=== PATIENT | male | born 1945 ===

== ENCOUNTER → 2024-08-14 11:31 | Outpatient (REF) | payer MEDICARE, SELFPAY | LOC: HWRCS 11:31 | PROVIDERS: ATTENDING PHYSICIAN Internal Medicine Cardiovascular Disease; FAMILY PHYSICIAN Internal Medicine | DX: I25.10 Atherosclerotic heart disease of native coronary artery without angina pectoris (principal) | CPT/HCPCS: 78452; 93017; A9500; J2785 ==

== ENCOUNTER 2024-10-01 14:39 | Inpatient (IN) | payer MEDICARE, OTHER, SELFPAY ==
[2024-10-01] VITALS (21 sets, daily range): BP systolic 66–125; BP diastolic 55–85; BMI 29.6
--- NOTE | 2024-10-01 11:51 | W.ICD.CONTRA ---
Post ICD/LUMBER BUYER-D
-
History of [place]?: Yes
LV Function
Left ventricular function study result?: Ejection Fraction >/= 40%
ACEI/ARB/ARNI
Patient already on ACEI/ARB/ARNI: Yes
Beta-Nathalie
Patient already on Beta Nathalie: Yes
--- NOTE | 2024-10-01 13:35 | ITS.CL.ICD ---
Disaster Director - ICD
Implantable Cardioverter Defibrillator
Procedure Report:
ICD IMPLANTATION REPORT
Date of Procedure: October 01, 2024
Primary Care Provider: Dr Gary Brown
Primary technical communication teacher: Dr Jose Luis Argueta
draw operator: Arsen Cueto M.D.
PROCEDURES:
1. Right Heart Cath, 2. BiV ICD Implant
HISTORY:
History notable for recent ST elevation ND, EF 40-45% on initial evaluation 05/2024 in [place], with complete heart block s/p placement of dual-chamber pacemaker. Also found to have new diagnosis of atrial fibrillation 05/2024,s/p ANA/CV and started on
Eliquis and Amiodarone. Subsequent admission to [facility] 07/2024 for acute on chronic HFrEF, echo there with EF 25-30%, started on Lasix and Entresto (and continued on Toprol).
Was in [facility] on EKGs 07/08/2024 and 08/11/2024.
Subsequent nuclear stress test 08/14/2024 with large areas of scar, EF 36%.
Subsequent echocardiogram with greater than 90 days on guideline directed medical therapy for heart failure with reduced ejection fraction continues to show severe left ventricular systolic dysfunction
NYHA class 3
Duration of HF > 3 mo despite guideline directed medical therapy at maximally tolerated doses
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
LBBB, QRS duration 170 ms
Primary prevention
Life expectancy > 1 year
After informed consent was obtained, a 'time out' was called and confirmed. The patient was prepped and draped in a sterile fashion.
Lidocaine with epi was used for local anesthesia. An incision was made over the previous incision and the pocket was entered and with careful dissection the right ventricular lead was identified. It suture sleeve was identified. Sutures were
severed. Active fixation was withdrawn and with gentle continued traction the lead was from the right ventricular endocardium. Central venous access was obtained by breaching the outer insulation of this lead with a scalpel and then
inserting the floppy end of the micropuncture wire into the space. Both lead and micropuncture wire were then advanced back into the central venous system. The micropuncture wire was then . It was further advanced into the central venous
system while the pacing lead was withdrawn completely. Separate central venous access via axillary/subclavian stick was performed. However despite multiple attempts with multiple sheaths, the sheaths and lead would tend to get hung up at the
junction of the superior vena cava and the right atrium. Therefore this access was abandoned and pressure was used for hemostasis. Second central venous access was then obtained using a retained guidewire technique from the first central venous
access. Using a Seldinger technique and peel-away sheaths, the pacing leads were placed under fluoroscopic guidance.
Right ventricular ICD lead was placed at the septal mid right sided interventricular septum.
Next left bundle branch pacing was performed.
Fluoroscopy was used to determine likely anatomic site for left bundle branch pacing. The [employer] Butttronic C315 sheath was used to deliver the Medtronic 3830 Selectsecure pacing lead with the helix exposed just exposed from the sheath tip during continuous
monitoring when pacemapping the septum during gentle clockwise rotation to obtain a paced QRS morphology of a W pattern in lead V1. Once the suspected optimal site was identified, lead deployment was performed with several rapid rotations as paced
QRS morphology was intermittently monitored until a paced QRS complex in lead V1 demonstrated development of an R wave Qr..
Unipolar pacing impedance dropped by approximately 100ohms suggesting it had reached the left ventricular subendocardial.
Stable VEgm injury current is present throughout final lead position including at end of case, suggesting there was no perforation through the septum into the LV cavity at this position.
Unipolar pacing impedance is 700 Ohms
Unipolar pacing threshold is stable at 1.5 V @ 0.4 ms.
Final conduction system paced QRS complex duration is 120 ms
LVAT is 90 ms and peak V5 -> peak V1 timing is 35 ms.
During withdrawal of the left bundle branch pacing system sheath, the right ventricular lead dislodged. This required repositioning of the right ventricular lead. This was successfully performed.
Once testing (see below) showed adequate and stable function, the leads were secured using the suture sleeves. The pocket was liberally irrigated with antibiotic solution. The leads were connected to the generator header and the leads and
generator were placed within the pocket. Fluoroscopy confirmed stable lead position. The pocket was closed in the typical fashion.
Antibiotic pouch was used
REMOVED:
[employer] ASSURITY [id number]
EXTRACTED:
[employer] right ventricular pacing lead, 2087t TENDRIL
RETAINED:
[employer] right atrial pacing lead,
IMPLANTS:
ICD Medtronic [id number], SN RTG [id number] S , Left Pectoral
RV Medtronic 6935M, SN TDL [id number] V
Left Bundle: Medtronic 3830 , SN:LFF [id number] V, Interventricular septum at LBB
DEVICE TESTING:
Sensing: RA 4, RV 8 mV
Capture: RA 1.5 V @ 0.4 ms, RV 0.75 V @ 0.4ms, LV 560 V@ 0.4ms (tip to RV coil)
Ohms: RA 700, RV 560, LV 570 (tip to RV coil)
FINAL PROGRAMMING:
[place] Pacing: DDDR 50-130
Tachy parameters:
VF: 188 bpm, ATP X 1, Shock
COMPLICATIONS:
None
CONCLUSIONS:
- Removal of dual-chamber permanent pacemaker generator
- Extraction of right ventricular pacing lead
- Implantation of ICD and lead system
- Implantation of new right ventricular lead (LBB pacing lead for cardiac resynchronization)
RECOMMENDATIONS:
1. Telemetry monitoring, CXR
2. Office wound check in 5-7 days.
Copy:
Dr Gary Brown
Dr Jose Luis Argueta
--- NOTE | 2024-10-01 17:41 | W.PN.UPDATE ---
Update Note
Progress Note Update
Post procedure he is asymptomatic but blood pressures are marginally hypotensive. He describes that he tends to run low blood pressures. He did take all of his medications including Entresto earlier today. Given that he is post procedure I did
check a quick bedside echocardiogram which demonstrates no pericardial effusion.
Will continue to monitor closely.
[2024-10-01] MEDS: TYLENOL 650 MG PO (17:47)
--- NOTE | 2024-10-01 18:35 | PTCARENOTE ---
Pt received post BIVICD upgrade, pressure dressing over left anterior chest, no sign of bleeding or hematoma. Pt with SBP's 69-70's, pt denies any lightheadedness and states he occ. @ SBP of 70 at home. Jannette Thomason NP notified and came to see pt.
ECHO done at bedside and was reviewed by . Pt OOB to bathroom once without problem. Pt states he will call for assistance. Telemetry shows atrial paced rhythm. Will monitor BP closely.
[2024-10-01] MEDS: ANCEF 5 IV (20:24)
[2024-10-02] VITALS (14 sets, daily range): BP systolic 65–130; BP diastolic 39–87; BMI 29.6
--- NOTE | 2024-10-02 00:33 | PTCARENOTE ---
Assumed care on pt at 1900, aaox3, pressure dressing over left anterior chest CDI, no sign of bleeding or hematoma. A-paced on the monitor with HR 60's, Bp's soft, pt denies any lightheadedness or dizziness. Call martins within reach.
[2024-10-02 03:42] LABS: Hematocrit 41.8 % (39.0-52.0); Hemoglobin 14.2 g/dL (13.0-18.0); Mean Corp Hgb Conc. 34.0 g/dL (33.0-37.0); Mean Corpuscular Volume 90.9 fL (80.0-94.0); Platelet Count 179 10^3/uL (130-400); Red Cell Dist. Width 13.8 % (11.5-14.5)
[2024-10-02 04:07] LABS: Blood Urea Nitrogen 42 mg/dl (9-20); Calcium 8.6 mg/dl (8.4-10.2); Carbon Dioxide 27 mmol/L (22-30); Chloride 105 mmol/L (98-107); Estimated Creatinine Clearance 33 ml/min; Glucose 103 mg/dl (70-99); Magnesium 2.3 mg/dl (1.6-2.3); Potassium 3.7 mmol/L (3.5-5.1); Sodium 140 mmol/L (135-145); eGFR 33.53
[2024-10-02] MEDS: ANCEF 5 IV (04:46)
[2024-10-02] MEDS: TYLENOL 650 MG PO (08:42)
[2024-10-02] MEDS: PLAVIX 75 MG PO (08:43)
[2024-10-02] MEDS: PACERONE 200 MG PO (08:43)
--- NOTE | 2024-10-02 09:23 | W.PN.CARDCBS ---
Addendum entered and electronically signed by Arsen Cueto MD 10/02/24 14:08:
Patient seen, interviewed and examined by me.
Well-appearing, no acute distress
Regular rate and rhythm with normal S1 and S2, no S3 no S4. There is a grade 1/6 apical holosystolic murmur and no rubs. PMI is normally placed.
Dressing left upper chest is clean and dry
Lungs are clear to auscultation bilaterally without wheezes rales or rhonchi.
Abdomen soft nontender nondistended with normoactive bowel sounds
Extremities show trace pretibial edema bilaterally no clubbing or cyanosis.
Neurologic exam is grossly nonfocal.
I reviewed telemetry which shows atrial ventricular pacing as expected.
I reviewed his chest x-ray which shows stable positioning of the lead and generator system. There is no pneumothorax
He remains afebrile.
Labs stable
He does run soft blood pressures. He tells me this is typical for him. I am concerned he may be slightly volume depleted. Giving 500 cc of normal saline today and holding Lasix. As long as blood pressure improves and he remains asymptomatic he
will be considered for discharge to home later today. I also reviewed activity restrictions with him and answered all of his questions.
Original Note:
Today's Communication / Plan
-
post BiV ICD upgrade
hypotension, IV bolus 500cc now
hold lasix today and tomorrow as well as entresto
Impression / Plan
-
Primary Care Provider: Dr Gary Brown
Primary operations and maintenance technician: Dr Jose Luis Argueta
Impression:
Chronic HFrEF 25-30%
CAD post CABGx4 12/2015
PCI LCx 01/2016
STEMI 05/2024 with occluded VG to PDA treated medically
CHB post DC PPM 05/2024
PAF dx 05/2024
LBBB
HTN
HLD
CKD 3
LICA stenosis with prior CEA 2005 then LICA stent 2017
Plan:
post BiV ICD upgrade with RV lead extraction and new LBBAP lead placement and ICD lead 10/01/24
site stable with small area of drainage, no HT
CXR no PTX with mild atelectasis b/l bases
tele Apaced
hypotension post procedure, possibly anesthesia related, denies dizziness, LH, hold BP meds this am
f/u Echo with no effusion last night
Will give 500cc NS bolus now and hold lasix today and tomorrow
Hold OAC, resume on Sat am
continue Plavix and amiodarone
Activity restrictions reviewed
inc check 1 week at [facility]
then continue cardiac care with Dr. Arugeta
if bp improved will plan to d/c home later this afternoon
Progress Note - Type Copy Examiner
Subjective
Date of Service: October 02, 2024
mild inc pain, no cp, sob
Objective
Labs:
10/02/24 02:50
10/02/24 02:50
Labs
Hgb 14.2 g/dL (13.0-18.0) 10/02/24 02:50
Hct 41.8 % (39.0-52.0) 10/02/24 02:50
Plt Count 179 10^3/uL (130-400) 10/02/24 02:50
Sodium 140 mmol/L (135-145) 10/02/24 02:50
Potassium 3.7 mmol/L (3.5-5.1) 10/02/24 02:50
BUN 42 mg/dl (9-20) H 10/02/24 02:50
Creatinine 2.0 mg/dL (0.7-1.3) H 10/02/24 02:50
Glucose 103 mg/dl (70-99) H 10/02/24 02:50
Vital Signs and I&O:
Vital Signs
Temp Pulse Resp BP Pulse Ox
98.5 F 63 18 71/57 93
10/02/24 06:39 10/02/24 08:45 10/02/24 06:39 10/02/24 08:42 10/02/24 07:53
Vital Signs
Temp Pulse Resp BP Pulse Ox
98.5 F 63 18 71/57 93
10/02/24 06:39 10/02/24 08:45 10/02/24 06:39 10/02/24 08:42 10/02/24 07:53
Intake & Output
09/30/24 10/01/24 10/02/24 10/03/24
06:59 06:59 06:59 06:59
Intake Total 480 / 480
Balance 480 / 480
Physical Exam
Physical Exam
NAD, AOX3
S1, S2, RRR
CTAB, non labored, no wheeze
SNTND Bsx4
L CW dressing with scant drainage marked, no HT
[2024-10-02] MEDS: NSS 500 IV (10:11)
--- NOTE | 2024-10-02 12:22 | CM ---
CM following for DC planning needs.
Met w/ patient at bedside to complete initial assessment.
Pt. reports that he resides alone. He is functionally indep. at baseline w/ ADLs, mobility without use of any assisted device.
He reports that he is open to [facility] prior to admission. Will send referral to them for resumption of care.
No other antic. needs noted.
Plan is for home w/ [facility].
Will follow.
--- NOTE | 2024-10-02 13:39 | W.DS.TRANS ---
Addendum entered and electronically signed by Arsen Cueto MD 10/03/24 12:15:
Patient seen, interviewed and examined by me.
Well-appearing, no acute distress
Regular rate and rhythm with normal S1 and S2, no S3 no S4. There is a grade 1/6 apical holosystolic murmur and no rubs. PMI is normally placed.
I remove the outer dressing at the left upper chest. Aquacel dressing underneath is clean and dry.
Lungs are clear to auscultation bilaterally without wheezes rales or rhonchi.
Abdomen soft nontender nondistended with normoactive bowel sounds
Extremities show trace pretibial edema bilaterally no clubbing or cyanosis.
Neurologic exam is grossly nonfocal.
ECG reviewed and shows atrial ventricular pacing. Telemetry reviewed and shows atrial ventricular pacing with no pauses or interruptions in pacing.
I reviewed his chest x-ray which shows a normal expected appearance of his pacemaker and lead system. I reviewed his x-ray and there is no pneumothorax.
Overall doing well after permanent pacemaker implantation for symptomatic complete heart block.
Will now be able to resume metoprolol which was previously discontinued.
He is a bit hypertensive. Will get him back on his antihypertensive drug therapy he was on as an outpatient and follow his blood pressure as an outpatient.
I also reviewed with him pacemaker implantation activity restrictions and answered all of his questions.
He will have a wound check in my office in approximately 1 week.
Stable for discharge to home.
Original Note:
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
-
Discharge Instructions:
Sleep Apnea Risk Low
Discharge Diagnosis/Procedures BiV ICD upgrade
Diet 2 Gram Sodium
Driving Restrictions No driving for 1 week
Bathing Restrictions OK to Shower
Specialty Instructions Weigh Daily
Instructions:
Stand-Alone Forms: DC Inst - Implanted Device
Changes to Home Medications: No
Discharge Medications:
DC Medications w/original date entered in [email or web address]
amiodarone 200 mg tablet 200 mg PO DAILY Heart Disease/Condition 10/01/24
apixaban 5 mg tablet (Eliquis) 5 mg PO BID Blood Clot Prevention/Tx 10/01/24
clopidogrel 75 mg tablet 75 mg PO DAILY Blood Clot Prevention/Tx 10/01/24
cod liver oil 1 cap PO DAILY Supplement 10/01/24
furosemide 40 mg tablet 40 mg PO DAILY Fluid Retention/Swelling 10/01/24
metoprolol succinate 25 mg tablet,extended release 24 hr 25 mg PO DAILY Blood Pressure 10/01/24
sacubitril 24 mg-valsartan 26 mg tablet (Entresto) 1 tab PO BID Blood Pressure 10/01/24
Home Medication Changes
Pending Results: No
--- NOTE | 2024-10-02 14:20 | PTCARENOTE ---
Pt with low SBP's of 65-70, pt tired but denies lightheadedness. Entresto and metoprolol doses held this morning, Jannette Thomason NP aware, pt given 500ml fluid bolus. SBP's improved to 110, pt walked @150 feet in halls without problem. Confirmed pt able
to be discharged home with Jannette Thomason NP. Telemetry and IV device removed. Discharge instructions reviewed with pt regarding wound care, activity and driving restrictions, pain management, medications and their possible side effects and time of
resumption, reporting cares and concerns and follow up appointments. Very good understanding verbalized. Pt escorted out via wheelchair and discharged to home.
== END 2024-10-02 14:38 | disposition home health service (06) | DRG 277 ==
LOC: IVU 14:39
PROVIDERS: Nurse Practitioner Adult Health; ADMITTING PHYSICIAN Internal Medicine Cardiovascular Disease; FAMILY PHYSICIAN Internal Medicine; REFERRING PHYSICIAN Internal Medicine Cardiovascular Disease
PROC: 4A023N6 Measurement of Cardiac Sampling and Pressure, Right Heart, Percutaneous Approach (ICD-10-PCS; 2024-10-01)
PROC: 02HK3KZ Insertion of Defibrillator Lead into Right Ventricle, Percutaneous Approach (ICD-10-PCS; 2024-10-01)
PROC: 0JH609Z Insertion of Cardiac Resynchronization Defibrillator Pulse Generator into Chest Subcutaneous Tissue and Fascia, Open Approach (ICD-10-PCS; 2024-10-01)
PROC: 02PA3MZ Removal of Cardiac Lead from Heart, Percutaneous Approach (ICD-10-PCS; 2024-10-01)
PROC: 02HL3KZ Insertion of Defibrillator Lead into Left Ventricle, Percutaneous Approach (ICD-10-PCS; 2024-10-01)
PROC: 0JPT0PZ Removal of Cardiac Rhythm Related Device from Trunk Subcutaneous Tissue and Fascia, Open Approach (ICD-10-PCS; 2024-10-01)
DX: Z45.018 Encounter for adjustment and management of other part of cardiac pacemaker (principal); I13.0 Hypertensive heart and chronic kidney disease with heart failure and stage 1 through stage 4 chronic kidney disease, or unspecified chronic kidney disease; I44.2 Atrioventricular block, complete; I50.22 Chronic systolic (congestive) heart failure; J98.11 Atelectasis; J93.9 Pneumothorax, unspecified; I95.2 Hypotension due to drugs; T41.3X5A Adverse effect of local anesthetics, initial encounter; I25.10 Atherosclerotic heart disease of native coronary artery without angina pectoris; I48.0 Paroxysmal atrial fibrillation; N18.30 Chronic kidney disease, stage 3 unspecified; I44.7 Left bundle-branch block, unspecified; E78.5 Hyperlipidemia, unspecified; I65.22 Occlusion and stenosis of left carotid artery; I25.5 Ischemic cardiomyopathy; Z95.1 Presence of aortocoronary bypass graft; I25.2 Old myocardial infarction; Z79.01 Long term (current) use of anticoagulants
CPT/HCPCS: 33233; 33234; 33249; 71045; 80048; 83735; 85027; 93005; 93308; C1769; C1777; C1882; C1887; C1892; C1898